=== PATIENT | male | born 1990 | race Caucasian/White ===

== ENCOUNTER 2019-07-03 07:52 | Emergency (ER) | payer BC ==
[2019-07-03] MEDS ORDERED: Lidocaine 1% 10 ML MDV INJECT ONE (08:02)
[2019-07-03 08:15] VITALS: BP 114/78; PULSE 81
--- NOTE | 2019-07-03 08:15 | EDM.PDOC ---
ED HPI GENERAL MEDICAL PROBLEM - General Chief Complaint: Laceration Stated Complaint: LEFT ELBOW LACERATION Time Seen by Provider: 07/03/19 07:57 Source of Information: Reports: Patient History Limitations: Reports: No Limitations - History of Present Illness INITIAL COMMENTS - FREE TEXT/NARRATIVE: Pt is a 28 year old male who presents with a laceration to his left elbow. He states that around 2200 last night he was playing hockey and fell on the ice. States last night he had some pain radiating from his elbow to his hand; however , it is no longer painful. He is able to move joint without difficulty. - Related Data Allergies Allergy/AdvReac Type Severity Reaction Status Date / Time No Known Allergies Allergy Verified 11/19/14 14:11 Home Meds: Home Meds Doxycycline [Vibramycin 25 MG/5 ML Susp] 100 mg PO Q12H #14 bottle 11/19/14 [Rx] ED ROS GENERAL - Review of Systems Review Of Systems: See Below Constitutional: Reports: No Symptoms HEENT: Reports: No Symptoms Respiratory: Reports: No Symptoms Cardiovascular: Reports: No Symptoms Endocrine: Reports: No Symptoms GI/Abdominal: Reports: No Symptoms : Reports: No Symptoms Musculoskeletal: Reports: No Symptoms Skin: Reports: Other (left elbow laceration) Neurological: Reports: No Symptoms Psychiatric: Reports: No Symptoms Hematologic/Lymphatic: Reports: No Symptoms Immunologic: Reports: No Symptoms ED EXAM, SKIN/RASH Exam: See Below Exam Limited By: No Limitations General Appearance: Alert Respiratory/Chest: No Respiratory Distress, Lungs Clear, Normal Breath Sounds, No Accessory Muscle Use Cardiovascular: Normal Peripheral Pulses, Regular Rate, Rhythm, No Murmur Skin: Warm, Other (1 cm "x-shaped" laceration to left elbow) ED SKIN PROCEDURES - Laceration/Wound Repair Left Elbow Appearance: Subcutaneous Distal NVT: Neuro & Vascular Intact Anesthetic Type: Local Local Anesthesia - Lidocaine (Xylocaine): 1% Plain Local Anesthetic Volume: 1cc Skin Prep: Providone-Iodine (Betadine) Exploration/Debridement/Repair: Wound Explored Closed with: Sutures Lac/Wound length In cm: 1 ("x -shaped") Suture Size: 3-0 # of Sutures: 4 Suture Type: Nylon Sterile Dressing Applied: Nurse Tetanus Status Addressed: Yes Complications: No Progress/Comments: Tdap last in 2014. Course - Orders/Labs/Meds Orders: Active Orders 24 hr Category Date Time Status Lidocaine 1% [Xylocaine 1%] Med 07/03/19 08:02 Once 10 ml INJECT ONETIME ONE Departure - Departure Time of Disposition: 08:26 Disposition: Home, Self-Care 01 Condition: Good Clinical Impression: Laceration of elbow, left Qualifiers: Encounter type: initial encounter Qualified Code(s): S51.012A - Laceration without foreign body of left elbow, initial encounter - Discharge Information *PRESCRIPTION DRUG MONITORING PROGRAM REVIEWED*: No *COPY OF PRESCRIPTION DRUG MONITORING REPORT IN PATIENT ELENI: No Instructions: Sutured Wound Care Referrals: Anahy Tineo NP [Primary Care Provider] - Additional Instructions: You were seen in the emergency department for a 1 cm laceration to your left elbow. The wound was cleansed and closed with 4 sutures. The sutures should stay intact for 10 days. After that time they may be removed at either the [facility] or the [place] walk-in clinic. The wound should be kept clean and dry. Wash with regular soap and water twice daily and then pat dry. If there is a chance that the wound may become contaminated, cover it with a Band-Aid. Otherwise it may be left open to air. Watch for signs of infection including redness, swelling, or purulent drainage. If these should occur please follow-up with your primary care provider or return to the emergency department. - My Orders Last 24 Hours: My Active Orders 07/03/19 08:02 Lidocaine 1% [Xylocaine 1%] 10 ml INJECT ONETIME ONE - Assessment/Plan Last 24 Hours: My Active Orders 07/03/19 08:02 Lidocaine 1% [Xylocaine 1%] 10 ml INJECT ONETIME ONE
== END 2019-07-03 08:30 | disposition home or self-care (01) ==
LOC: JD.ED 07:52
DX: S51.012A Laceration without foreign body of left elbow, initial encounter (principal); W19.XXXA Unspecified fall, initial encounter; Y93.22 Activity, ice hockey
CPT/HCPCS: 12001; 99282; J2001

== ENCOUNTER 2019-08-31 20:58 | Emergency (ER) | payer OTHER, BC ==
[2019-08-31 21:14] VITALS: BP 141/89; PULSE 104
[2019-08-31] MEDS ORDERED: Ibuprofen 600 MG Tab PO ONE (21:33)
--- NOTE | 2019-08-31 22:43 | EDM.PDOC ---
ED HPI GENERAL MEDICAL PROBLEM - General Chief Complaint: Upper Extremity Injury/Pain Stated Complaint: LEFT SHOULDER INJURY Time Seen by Provider: 08/31/19 21:14 Source of Information: Reports: Patient, Family () History Limitations: Reports: No Limitations - History of Present Illness INITIAL COMMENTS - FREE TEXT/NARRATIVE: Agustin is a very pleasant 28-year-old man with a past medical history significant for for only GERD, who states that he was playing hockey around 20:30 this evening, when he fell and slid hard and fast into the boards, striking the left side of his head and his left shoulder. He was wearing a helmet, but believes that he may have been knocked unconscious momentarily. He now presents to the ED with left shoulder and clavicle pain. He states that it hurts to breathe. Here in the ED, the patient's BP is mildly elevated, and he is slightly tachycardic, but otherwise hemodynamically stable. The patient's PCP is Anahy Tineo NP. He received an influenza vaccine this season. Left Shoulder Pain Score (Numeric/FACES): 5 - Related Data Allergies Allergy/AdvReac Type Severity Reaction Status Date / Time No Known Allergies Allergy Verified 08/31/19 21:14 Home Meds: Home Meds Omeprazole Magnesium [Prilosec Otc] 20 mg PO DAILY 07/03/19 [History] Past Medical History Gastrointestinal History: Reports: GERD Endocrine/Metabolic History: Reports: Obesity/BMI 30+ - Past Surgical History HEENT Surgical History: Reports: Naso-Sinus Surgery (septum surgery x 2), Oral Surgery (wisdom teeth extraction), Tonsillectomy Neurological Surgical History: Reports: Lumbar Spine (microdiscectomy Mar 2019) Musculoskeletal Surgical History: Reports: Other (See Below) (Right hamate bone resection) Social & Family History - Family History Family Medical History: Noncontributory - Tobacco Use Smoking Status *Q: Never Smoker - Caffeine Use Caffeine Use: Reports: Coffee - Alcohol Use Alcohol Use History: Yes Alcohol Use Frequency: Socially - Recreational Drug Use Recreational Drug Use: No - Living Situation & Occupation Living situation: Reports: , with Spouse 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 ED EXAM, GENERAL - Physical Exam Exam: See Below Exam Limited By: No Limitations General Appearance: Alert, WD/WN, Mild Distress (appears uncomfortable) Eye Exam: Bilateral Eye: EOMI, Normal Inspection, PERRL Ears: Normal External Exam, Normal Canal, Hearing Grossly Normal, Normal TMs Nose: Normal Inspection, Normal Mucosa, No Blood Throat/Mouth: Normal Inspection, Normal Lips, Normal Teeth, Normal Gums, Normal Oropharynx, Normal Voice, No Airway Compromise Head: Atraumatic (mildly tender on left scalp, but no visible or palpable abnormality, such as swelling, erythema, ecchymosis, or abrasion), Normocephalic Neck: Normal Inspection, Supple, Non-Tender, Full Range of Motion Respiratory/Chest: No Respiratory Distress, Lungs Clear, Normal Breath Sounds, No Accessory Muscle Use, Chest Non-Tender Cardiovascular: Normal Peripheral Pulses, Regular Rate, Rhythm, No Edema, No Gallop, No JVD, No Murmur, No Rub Peripheral Pulses: 4+: Radial (L), Radial (R) GI/Abdominal: Normal Bowel Sounds, Soft, Non-Tender, No Organomegaly, No Distention, No Abnormal Bruit, No Mass (Male) Exam: Deferred Rectal (Males) Exam: Deferred Back Exam: Full Range of Motion, Other (Tenderness to the medial aspect of the left scapula. Mild tenderness to palpation of the body of the scapula.) Extremities: No Pedal Edema, Normal Capillary Refill, Other (There is an abrasion to the lateral aspect of the patient's shoulder. He reports tenderness to palpation to the lateral aspect of his left clavicle, particularly around the A-C joint, however, there is no clavicular rise. No tenderness to the proximal humerus/shoulder proper) Neurological: Alert, Oriented, CN II-XII Intact, Normal Cognition, No Motor/ Sensory Deficits Psychiatric: Normal Affect Skin Exam: Warm, Dry, Intact, Normal Color, No Rash Course - Vital Signs Last Recorded V/S: Last Vital Signs Temp 37.0 C 08/31/19 21:11 Pulse 104 H 08/31/19 21:11 Resp 18 08/31/19 21:11 BP 141/89 H 08/31/19 21:11 Pulse Ox 96 08/31/19 21:11 - Orders/Labs/Meds Meds: Medications Discontinued Medications Generic Name Dose Route Start Last Admin Trade Name Freq PRN Reason Stop Dose Admin Ibuprofen 600 mg 08/31/19 21:33 08/31/19 21:38 Motrin PO 08/31/19 21:34 600 mg ONETIME ONE Administration - Re-Assessments/Exams Free Text/Narrative Re-Assessment/Exam: 08/31/19 21:33 Based on the patient's history and physical exam, I am most concerned about a left A-C separation, scapular fracture, or pneumothorax. I have therefore ordered a chest x-ray, as well as x-rays of his left shoulder and left scapula. While the patient believes that he may have been momentarily knocked unconscious , he does not meet NICE criterion for a CT scan of his head. [place] was offered to treat the patient's pain, however he declined. He accepted an offer for ibuprofen. 08/31/19 22:33 2-view chest radiograph appears to be grossly normal. The cardiac silhouette is within normal limits. No pulmonary vascular congestion. No pleural effusions. No focal infiltrate. No pneumothorax. Formal read per the Radiologist pending. 3-view radiographs of the left shoulder appear to be normal. No fracture or dislocation identified. Formal read per the Radiologist pending. 2-view radiographs of the left scapula appear to be normal. No fracture or dislocation identified. Formal read per the Radiologist pending. 08/31/19 22:43 X-ray results discussed with the patient and his . As above, no fractures were found. His injuries appear to be due to soft tissue contusions. [place] was offered but declined. I am therefore recommending that he take ocpt-ukx-tqccffy ibuprofen, and apply ice packs to the areas of injury, for the next couple of days. He may resume activity as tolerated. Departure - Departure Time of Disposition: 22:43 Disposition: Home, Self-Care 01 Condition: Good Clinical Impression: Contusion of left shoulder - Discharge Information *PRESCRIPTION DRUG MONITORING PROGRAM REVIEWED*: Not Applicable *COPY OF PRESCRIPTION DRUG MONITORING REPORT IN PATIENT ELENI: Not Applicable Instructions: Contusion, [id number] Referrals: Anahy Tineo [employer] [Primary Care Provider] - Forms: ED Department Discharge Additional Instructions: You were seen in the emergency room after sliding hard into the boards while playing hockey, striking her head and injuring her left shoulder. Workup in the ER included a chest x-ray, and x-rays of your left shoulder and left scapula. All of your x-rays returned normal. No broken bones or dislocations were found. You have not popped a lung. We recommend that you take fxek-oij-[id number] ibuprofen, 3 tablets (600 mg) every 8 hours, with food, as needed for discomfort. We also recommend that you apply ice packs to your left shoulder area for the next couple of days, to help minimize swelling. You may resume your usual activities as tolerated. If any other problems, please do not hesitate to return to the ER. Sepsis Event Note - Evaluation Sepsis Screening Result: No Definite Risk - Focused Exam Vital Signs: Vital Signs Temp Pulse Resp BP Pulse Ox 08/31/19 21:11 37.0 C 104 H 18 141/89 H 96 Date Exam was Performed: 09/01/19 Time Exam was Performed: 09:07
--- NOTE | 2019-09-01 07:22 | CR ---
Left scapula: Two views of the scapula were obtained. Comparison: No prior shoulder or scapula exam is available. No fracture or other bony abnormality is appreciated. Impression: 1. No discrete scapular abnormality is appreciated. Diagnostic code #1 This report was dictated in [place] Standard Time
--- NOTE | 2019-09-01 07:22 | CR ---
Chest: Two views of the chest were obtained. Comparison: Prior chest x-ray of 11/29/14. Heart size and mediastinum are normal. Linear areas of atelectasis are seen within the left midlung. Lungs otherwise are clear with no acute parenchymal change. No discrete bony abnormality is appreciated. Impression: 1. Linear areas of atelectasis as noted above. 2. Nothing acute is otherwise seen on two-view chest x-ray. Diagnostic code #2 This report was dictated in [place] Standard Time
--- NOTE | 2019-09-01 07:22 | CR ---
Left shoulder: Three views of the left shoulder were obtained. Glenohumeral joint and acromioclavicular joint appear within normal limits. No fracture, dislocation or other bony abnormality is appreciated. Impression: 1. No abnormality is appreciated on three-view left shoulder exam. Diagnostic code #1 This report was dictated in [place] Standard Time
== END 2019-08-31 23:00 | disposition home or self-care (01) ==
LOC: JD.ED 20:58
DX: S40.012A Contusion of left shoulder, initial encounter (principal); K21.9 Gastro-esophageal reflux disease without esophagitis; E66.9 Obesity, unspecified; Z68.35 Body mass index [BMI] 35.0-35.9, adult; Z79.899 Other long term (current) drug therapy; W19.XXXA Unspecified fall, initial encounter; W22.09XA Striking against other stationary object, initial encounter; Y93.22 Activity, ice hockey
CPT/HCPCS: 71046; 73010; 73030; 99284; A9270; 99282

== ENCOUNTER 2021-07-25 10:15 | Emergency (ER) | payer OTHER, BC ==
[2021-07-25 10:28] VITALS: BP 162/78; PULSE 88
--- NOTE | 2021-07-25 10:39 | EDM.PDOC ---
ED HPI GENERAL MEDICAL PROBLEM - General Chief Complaint: Cardiovascular Problem Stated Complaint: CHEST PAIN, SOB, DIZZY SPELLS Time Seen by Provider: 07/25/21 11:27 Source of Information: Reports: Patient History Limitations: Reports: No Limitations - History of Present Illness INITIAL COMMENTS - FREE TEXT/NARRATIVE: Patient is a 30-year-old male with a history of obesity presenting with a chief complaint of chest pain. Patient reports the chest pain is on the left side of his chest. Started last night while he was playing hockey. Patient denies any additional trauma to his chest. Patient reports the chest pain is like a tightness without radiation. Patient denies any prior history of similar complaints. He does have associated dizziness and mild shortness of breath. Denies lower extremity swelling, calf pain, prior history of DVT/PE and denies any recent hospitalizations. Patient is not a smoker and has no first-degree relatives with heart disease or stroke. Chest Pain Score (Numeric/FACES): 1 - Related Data Allergies Allergy/AdvReac Type Severity Reaction Status Date / Time No Known Allergies Allergy Verified 07/25/21 10:29 Home Meds: Home Meds Omeprazole Magnesium [Prilosec Otc] 20 mg PO DAILY 07/03/19 [History] Past Medical History Gastrointestinal History: Reports: GERD Endocrine/Metabolic History: Reports: Obesity/BMI 30+ - Infectious Disease History Infectious Disease History: Reports: Novel Coronavirus - Past Surgical History HEENT Surgical History: Reports: Naso-Sinus Surgery, Oral Surgery, Tonsillectomy Neurological Surgical History: Reports: Lumbar Spine Musculoskeletal Surgical History: Reports: Other (See Below) Other Musculoskeletal Surgeries/Procedures:: back surgery mar 2019 Social & Family History - Family History Family Medical History: No Pertinent Family History - Tobacco Use Tobacco Use Status *Q: Never Tobacco User - Caffeine Use Caffeine Use: Reports: None - Recreational Drug Use Recreational Drug Use: No - Living Situation & Occupation Living situation: Reports: , with Spouse 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[employer]) ED ROS GENERAL - Review of Systems Review Of Systems: See Below Free Text/Narrative/Comment: In addition to that documented in the HPI above, the additional ROS was obtained: Constitutional: Denies fevers or chills Eyes: Denies vision changes ENMT: Denies sore throat CV: Per HPI Resp: Per HPI GI: Denies vomiting or diarrhea : Denies painful urination MSK: Denies recent trauma Skin: Denies new rashes Neuro: Denies new numbness or tingling or weakness Endocrine: Denies unexpected weight loss Heme: Denies bleeding disorders ED EXAM, GENERAL - Physical Exam Exam: See Below Free Text/Narrative:: I have reviewed the triage vital signs Const: Well nourished, well developed, appears stated age Eyes: Pupils Equal and reactive to light bilaterally, no conjunctival injection HENT: No signs of trauma or swelling, Neck supple without meningismus CV: Regular Rate Rhythm, Warm, well-perfused extremities RESP: Unlabored respiratory effort MSK: No gross deformities appreciated Skin: Warm, dry. No rashes Neuro: Alert, tax agent II-XII grossly intact. Sensation and motor function of extremities grossly intact. Psych: Appropriate mood and affect. #1 Interpretation EKG Date: 07/25/21 Time: 10:27 Rhythm: NSR Rate (Beats/Min): 82 [place]: Normal P-Wave: Present QRS: Normal ST-T: Normal QT: Normal Comparison: No Change EKG Interpretation Comments: Normal EKG Course - Vital Signs Last Recorded V/S: Last Vital Signs Temp 36.7 C 07/25/21 10:26 Pulse 88 07/25/21 10:26 Resp 17 07/25/21 10:26 BP 162/78 H 07/25/21 10:26 Pulse Ox 99 07/25/21 10:26 - Orders/Labs/Meds Labs: Laboratory Tests 07/25/21 07/25/21 Range/Units 10:40 10:40 WBC 7.29 (4.23-9.07) K/mm3 RBC 4.93 (4.63-6.08) M/mm3 Hgb 14.8 (13.7-17.5) gm/dl Hct 45.1 (40.1-51.0) % MCV 91.5 (79.0-92.2) fl MCH 30.0 (25.7-32.2) pg MCHC 32.8 (32.2-35.5) g/dl RDW Std Deviation 44.1 H (35.1-43.9) fL Plt Count 268 (163-337) K/mm3 MPV 10.5 (9.4-12.3) fl Neut % (Auto) 60.0 (34.0-67.9) % Lymph % (Auto) 24.3 (21.8-53.1) % [place] % (Auto) 12.2 (5.3-12.2) % Eos % (Auto) 2.9 (0.8-7.0) Baso % (Auto) 0.3 (0.1-1.2) % Neut # (Auto) 4.38 (1.78-5.38) K/mm3 Lymph # (Auto) 1.77 (1.32-3.57) K/mm3 [place] # (Auto) 0.89 H (0.30-0.82) K/mm3 Eos # (Auto) 0.21 (0.04-0.54) K/mm3 Baso # (Auto) 0.02 (0.01-0.08) K/mm3 Sodium 138 (136-145) mEq/L Potassium 3.5 (3.5-5.1) mEq/L Chloride 99 (98-107) mEq/L Carbon Dioxide 28 (21-32) mEq/L Anion Gap 14.5 (5-15) BUN 19 H (7-18) mg/dL Creatinine 1.0 (0.7-1.3) mg/dL Est Cr Clr Drug Dosing 124.44 mL/min Estimated GFR (MDRD) > 60 (>60) mL/min BUN/Creatinine Ratio 19.0 H (14-18) Glucose 107 H (70-99) mg/dL Calcium 9.4 (8.5-10.1) mg/dL Total Bilirubin 0.4 (0.2-1.0) mg/dL AST 25 (15-37) U/L ALT 42 (16-63) U/L Alkaline Phosphatase 62 (46-116) U/L Troponin I < 0.017 (0.00-0.056) ng/mL Total Protein 7.9 (6.4-8.2) g/dl Albumin 4.0 (3.4-5.0) g/dl Globulin 3.9 gm/dL Albumin/Globulin Ratio 1.0 (1-2) Meds: Medications Discontinued Medications Generic Name Dose Route Start Last Admin Trade Name Freq PRN Reason Stop Dose Admin Ibuprofen 800 mg 07/25/21 11:19 07/25/21 11:35 Ibuprofen 800 Mg Tab PO 07/25/21 11:20 Not Given ONETIME ONE Departure - Departure Time of Disposition: 12:25 Disposition: Home, Self-Care 01 Clinical Impression: Chest pain Instructions: Nonspecific Chest Pain, Adult, [id number] Referrals: PCP,None [Primary Care Provider] - Forms: ED Department Discharge Additional Instructions: Up with primary care in the next several days for further evaluation. Return to the emergency room for worsening pain or any other emergent concerns. I recommend ibuprofen 600 mg every 8 hours. Sepsis Event Note (ED) - Evaluation Sepsis Screening Result: No Definite Risk - Focused Exam Vital Signs: Vital Signs Temp Pulse Resp BP Pulse Ox 07/25/21 10:26 36.7 C 88 17 162/78 H 99 - Assessment/Plan Assessment:: Patient 30-year-old male presenting with chest pain. Patient unremarkable ER course. Differential diagnosis considered include but not limited to PE, ACS, aortic dissection. Patient EKG demonstrates no acute abnormalities. No ischemic changes. Laboratory studies were unremarkable. Troponin negative. Patient is low risk from a heart score standpoint and also has no major PE risk factors. No evidence of widened mediastinum on chest x-ray and aortic dissection is extremely unlikely. At this point, patient will be discharged with outpatient follow-up. Return precautions discussed as usual. Patient agrees with plan of care.
[2021-07-25] MEDS ORDERED: Ibuprofen 800 MG Tab PO ONE (11:19)
--- NOTE | 2021-07-25 12:45 | CR ---
EXAM: XR CHEST 1 VIEW LOCATION: [facility] [employer] DATE/TIME: 07/25/2021 11:20 AM INDICATION: Dyspnea COMPARISON: 31-Aug-2019 2 view chest x-ray. IMPRESSION: Cardiomediastinal silhouette is normal. Normal vasculature. Lungs and pleural spaces are clear of active disease. Stable left midlung scarring. SIGNED BY: Riley Stearns MD 07/25/2021 12:40 PM [facility]
== END 2021-07-25 12:43 | disposition home or self-care (01) ==
LOC: JD.ED 10:15
DX: R07.9 Chest pain, unspecified (principal); K21.9 Gastro-esophageal reflux disease without esophagitis; E66.9 Obesity, unspecified; Z68.41 Body mass index [BMI] 40.0-44.9, adult; Z79.899 Other long term (current) drug therapy
CPT/HCPCS: 36415; 71045; 71045-26; 80053; 84484; 85025; 93005; 99285-25

== ENCOUNTER 2023-09-24 13:12 | Emergency (ER) | payer BC, OTHER ==
[2023-09-24] MEDS ORDERED: Sodium Chloride 0.9% 10 ML Syringe FLUSH PRN (13:32)
[2023-09-24 13:48] LABS: BASOPHILS PERCENT AUTO 0.2 % (0.0-1.0); EOSINOPHILS ABSOLUTE AUTO 0.1 K/mm3 (0.0-0.4); EOSINOPHILS PERCENT AUTO 0.9 % (0.0-6.0); HEMATOCRIT 45.8 % (42.0-52.0); HEMOGLOBIN 15.6 gm/dl (14.0-18.0); IMMATURE GRAN ABSOLUTE AUTO 0.03 K/mm3 (0.00-0.05); IMMATURE GRAN PERCENT AUTO 0.3 % (0.0-0.4); LYMPHOCYTES ABSOLUTE AUTO 4.1 K/mm3 (1.0-4.8); LYMPHOCYTES PERCENT AUTO 44.1 % (24.0-44.0); MEAN CORPUSCULAR HEMOGLOBIN 30.5 pg (28.0-32.0); MEAN CORPUSCULAR HGB CONC 34.1 g/dl (32.0-36.0); MEAN CORPUSCULAR VOLUME 89.6 fl (83.0-99.0); MEAN PLATELET VOLUME 10.3 fl (9.4-12.4); MONOCYTES ABSOLUTE AUTO 0.7 K/mm3 (0.0-0.8); MONOCYTES PERCENT AUTO 7.7 % (0.0-8.0); NEUTROPHILS ABSOLUTE AUTO 4.4 K/mm3 (1.8-7.7); NEUTROPHILS PERCENT AUTO 46.8 % (41.0-71.0); PLATELET COUNT,PLT 256 K/mm3 (150-400); RED BLOOD CELL COUNT 5.11 M/mm3 (4.52-5.90)
[2023-09-24 14:17] LABS: A/G RATIO 1.1 (1-2); ALBUMIN 4.3 g/dl (3.4-5.0); ANION GAP 13.5 (5-15); BILIRUBIN TOTAL 0.6 mg/dL (0.2-1.0); BUN/CREATININE RATIO 15.8 (14-18); C-REACTIVE PROTEIN 0.31 mg/dL (<0.30); CALCIUM 9.5 mg/dL (8.5-10.1); CREATININE 1.2 mg/dL (0.7-1.3); EST CRCL DRUG DOSING (CG) 98.95 mL/min; POTASSIUM,K 4.5 mEq/L (3.5-5.1); PROTEIN TOTAL,TP 8.1 g/dl (6.4-8.2)
[2023-09-24 15:13] VITALS: BP 122/72; PULSE 66
== END 2023-09-24 15:07 | disposition home or self-care (01) ==
LOC: JD.ED 13:12
DX: R07.89 Other chest pain (principal); K21.9 Gastro-esophageal reflux disease without esophagitis; E66.9 Obesity, unspecified; Z79.899 Other long term (current) drug therapy; Z86.16 Personal history of COVID-19; Z68.41 Body mass index [BMI] 40.0-44.9, adult
CPT/HCPCS: 36415; 71046; 71046-26; 80053; 84484; 85025; 85379; 86140; 93005; 93010; 99283; 99285

== ENCOUNTER 2024-01-03 17:13 | Emergency (ER) | payer OTHER ==
[2024-01-03] MEDS: Alum Hydrox/Mag Hydrox/Simeth 30 ML, Lidocaine 2% 15 ML PO ONE (18:17)
[2024-01-03] MEDS: Hyoscyamine 0.125 MG Tab.SL SL ONE ×2 (21:00)
[2024-01-03 23:16] VITALS: BP 121/70; PULSE 72
== END 2024-01-03 21:20 | disposition home or self-care (01) ==
LOC: JD.ED 17:13
DX: R07.2 Precordial pain (principal); R07.89 Other chest pain; K44.9 Diaphragmatic hernia without obstruction or gangrene; K21.9 Gastro-esophageal reflux disease without esophagitis; K20.90 Esophagitis, unspecified without bleeding; E66.9 Obesity, unspecified; Z79.899 Other long term (current) drug therapy; Z86.16 Personal history of COVID-19; Z68.38 Body mass index [BMI] 38.0-38.9, adult
CPT/HCPCS: 36415; 71046; 71250; 74176; 84484; 93005; 99285; A9270

== ENCOUNTER 2024-01-10 08:19 | Day surgery (SDC) | payer OTHER ==
[~2024-01-10 08:19] MED LIST: Sodium Chloride 0.9% 10 ML Syringe FLUSH PRN; Sodium Chloride 0.9% 10 ML Syringe FLUSH SCH
[2024-01-10] MEDS ORDERED: Propofol 200 MG/20 ML SDV ONE ×2 (08:37→08:47)
[2024-01-10] MEDS: Lactated Ringers 1,000 ML IV SCH (08:40)
[2024-01-10 09:57] VITALS: BP 130/82; PULSE 60
== END 2024-01-10 09:53 | disposition home or self-care (01) ==
LOC: JD.SDS 08:19
PROVIDERS: ATTEND Surgery
DX: K29.50 Unspecified chronic gastritis without bleeding (principal); K21.9 Gastro-esophageal reflux disease without esophagitis; K44.9 Diaphragmatic hernia without obstruction or gangrene; E78.5 Hyperlipidemia, unspecified; R55 Syncope and collapse; E66.9 Obesity, unspecified; G47.33 Obstructive sleep apnea (adult) (pediatric); Z91.041 Radiographic dye allergy status; Z79.899 Other long term (current) drug therapy; Z68.38 Body mass index [BMI] 38.0-38.9, adult
CPT/HCPCS: 43239; J2704; J7120; 00731

== ENCOUNTER 2024-01-19 15:41 | Emergency (ER) | payer OTHER ==
[2024-01-19] MEDS ORDERED: Sodium Chloride 0.9% 10 ML Syringe FLUSH PRN (15:57)
[2024-01-19] MEDS: Alum Hydrox/Mag Hydrox/Simeth 30 ML, Lidocaine 2% 15 ML PO ONE (16:34)
[2024-01-19 16:50] LABS: BASOPHILS PERCENT AUTO 0.3 % (0.0-1.0); EOSINOPHILS ABSOLUTE AUTO 0.1 K/mm3 (0.0-0.4); EOSINOPHILS PERCENT AUTO 0.8 % (0.0-6.0); HEMATOCRIT 43.9 % (42.0-52.0); HEMOGLOBIN 14.8 gm/dl (14.0-18.0); IMMATURE GRAN ABSOLUTE AUTO 0.05 K/mm3 (0.00-0.05); IMMATURE GRAN PERCENT AUTO 0.4 % (0.0-0.4); LYMPHOCYTES ABSOLUTE AUTO 1.3 K/mm3 (1.0-4.8); LYMPHOCYTES PERCENT AUTO 10.3 % (24.0-44.0); MEAN CORPUSCULAR HEMOGLOBIN 30.3 pg (28.0-32.0); MEAN CORPUSCULAR HGB CONC 33.7 g/dl (32.0-36.0); MEAN CORPUSCULAR VOLUME 89.8 fl (83.0-99.0); MEAN PLATELET VOLUME 10.8 fl (9.4-12.4); MONOCYTES ABSOLUTE AUTO 0.7 K/mm3 (0.0-0.8); MONOCYTES PERCENT AUTO 5.7 % (0.0-8.0); NEUTROPHILS ABSOLUTE AUTO 10.8 K/mm3 (1.8-7.7); NEUTROPHILS PERCENT AUTO 82.5 % (41.0-71.0); PLATELET COUNT,PLT 242 K/mm3 (150-400); RED BLOOD CELL COUNT 4.89 M/mm3 (4.52-5.90); WHITE BLOOD CELL COUNT,WBC 13.02 K/mm3 (3.9-11.3)
[2024-01-19 17:15] LABS: A/G RATIO 1.3 (1-2); ALANINE AMINOTRANSFERASE,ALT 31 U/L (16-63); ALKALINE PHOSPHATASE 59 U/L (46-116); ANION GAP 11.1 (5-15); ASPARTATE AMNIOTRANSFERASE,AST 12 U/L (15-37); BILIRUBIN TOTAL 0.2 mg/dL (0.2-1.0); BLOOD UREA NITROGEN,BUN 21 mg/dL (7-18); BUN/CREATININE RATIO 16.2 (14-18); CALCIUM 9.5 mg/dL (8.5-10.1); CARBON DIOXIDE,CO2 28 mEq/L (21-32); CHLORIDE,CL 103 mEq/L (98-107); CREATININE 1.3 mg/dL (0.7-1.3); EST CRCL DRUG DOSING (CG) 90.49 mL/min; ESTIMATED GFR 74 mL/min (>60); GLUCOSE RANDOM 119 mg/dL (70-99); POTASSIUM,K 4.1 mEq/L (3.5-5.1); PROTEIN TOTAL,TP 7.1 g/dl (6.4-8.2); SODIUM,NA 138 mEq/L (136-145)
[2024-01-19 17:17] LABS: TROPONIN I HIGH SENSITIVITY < 4 pg/mL (<=76)
[2024-01-19 19:23] VITALS: BP 145/85; PULSE 69
== END 2024-01-19 19:21 | disposition home or self-care (01) ==
LOC: JD.ED 15:41
DX: R07.89 Other chest pain (principal); K21.9 Gastro-esophageal reflux disease without esophagitis; Z79.899 Other long term (current) drug therapy; Z86.16 Personal history of COVID-19
CPT/HCPCS: 36415; 71045; 80053; 84484; 85025; 85652; 93005; 99285; A9270